=== PATIENT | female | born 2000 | race Caucasian/White ===

== ENCOUNTER 2023-12-27 04:17 | Day surgery (SDC) | payer OTHER ==
[2023-12-26 09:45] VITALS: BMI 23.3
[2023-12-27] MEDS ORDERED: MIDAZOLAM HCL 2 MG/2 ML SINGLE DOSE VIAL ONE (12:47)
[2023-12-27] MEDS ORDERED: PROPOFOL 20 ML ONE ×2 (12:54→14:15)
[2023-12-27] MEDS ORDERED: SUCCINYLCHOLINE CHLORIDE 200 MG/10 ML SYRINGE ONE (12:54)
[2023-12-27] MEDS ORDERED: ROCURONIUM BROMIDE 50 MG/5 ML VIAL ONE (12:54)
[2023-12-27] MEDS ORDERED: ROCURONIUM BROMIDE 50 MG/5 ML SYRINGE ONE (12:55)
[2023-12-27] MEDS: metroNIDAZOLE 250 MG/50 ML PREMIX BAG IVPB ONE (13:10)
[2023-12-27] MEDS ORDERED: BUPIVACAINE HCL/PF 0.25% (2.5MG/ML) 10 ML VIAL ONE (13:53)
[2023-12-27] MEDS: BUPIVACAINE HCL/PF 0.25% (2.5MG/ML) 10 ML VIAL IJ ONE (14:00)
[2023-12-27] MEDS: LACTATED RINGERS SOLUTION 1,000 ML IV SCH (14:34)
[2023-12-27] MEDS ORDERED: ONDANSETRON 4 MG/2 ML VIAL IVPUSH PRN (14:38)
[2023-12-27] MEDS ORDERED: oxyCODONE HCL 5 MG TABLET ONE (16:31)
[2023-12-27] MEDS: oxyCODONE HCL 5 MG TABLET PO ONE (16:35)
[2023-12-27 16:47] VITALS: RESP 18
[2023-12-27 18:11] VITALS: BP 106/62; PULSE 89; TEMP 98.2
== END 2023-12-27 18:00 | disposition home or self-care (01) ==
LOC: JASU-SURG 04:17
PROVIDERS: ATTEND Obstetrics & Gynecology
PROC: 0UB14ZZ Excision of Left Ovary, Percutaneous Endoscopic Approach (ICD-10-PCS; principal; 2023-12-27 11:00)
DX: N80.102 Endometriosis of left ovary, unspecified depth (principal)
CPT/HCPCS: 81025; 88305-TC; 94760